=== PATIENT | male | born 1970 | race African-American/Black ===

== ENCOUNTER 2016-09-01 10:28 | Emergency (ER) | payer OTHER ==
[~2016-09-01] VITALS: Ht 172.7 cm; Wt 97.5 kg
[2016-09-01 10:34] VITALS: BP 139/95; PULSE 74; RESP 18; TEMP 97.4; O2SAT 97
--- NOTE | 2016-09-01 10:41 | NUR ---
Patient to ER bed 6 to gown for evaluation. Side rails up. Report given to Michael BA.
--- NOTE | 2016-09-01 10:41 | NUR ---
Pt report received from JESENIA Guerrero. Pt states I think I have "Walking Pneumonia." Pt c/o fever, productive cough with thick, white sputum, and headache x 3 weeks. BBS clear, respirations even and non-labored.
--- NOTE | 2016-09-01 10:50 | NUR ---
Dr. Cuellar at bedside to assess pt.
[2016-09-01 11:50] LABS: BASOPHILS % (AUTO) 0.4 % (0.0-2.0); EOSINOPHILS # (AUTO) 0.2 K/uL (0.0-0.4); EOSINOPHILS % (AUTO) 3.1 % (0.0-4.0); HEMATOCRIT 42.4 % (36-54); HEMOGLOBIN 14.1 g/dL (14.0-18.0); LYMPHOCYTES # (AUTO) 1.8 K/uL (1.0-5.5); LYMPHOCYTES % (AUTO) 27.7 % (20.5-51.5); MEAN CORPUSCULAR HEMOGLOBIN 29 pg (27-31); MEAN CORPUSCULAR HGB CONC 33 % (32-36); MEAN CORPUSCULAR VOLUME 87 fL (79.0-98.0); MONOCYTES # (AUTO) 0.6 K/uL (0.0-1.0); MONOCYTES % (AUTO) 9.7 % (1.7-9.3); NEUTROPHILS % (AUTO) 59.1 % (40.0-70.0); PLATELET COUNT (AUTO) 204 K/uL (130-430); RED CELL DISTRIBUTION WIDTH 12.8 % (9.0-15.0); WHITE BLOOD COUNT (AUTO) 6.6 K/uL (4.8-10.8)
[2016-09-01 12:01] LABS: CALCIUM 8.9 mg/dL (8.4-11.0); CREATININE 1.11 mg/dL (0.55-1.30); POTASSIUM 4.2 mmol/L (3.5-5.1)
[2016-09-01 12:06] LABS: ALBUMIN 4.3 g/dL (3.4-4.8); TOTAL BILIRUBIN 0.4 mg/dL (0.0-1.0); TOTAL PROTEIN, SERUM 8.3 g/dL (6.4-8.3)
[2016-09-01 12:28] VITALS: BP 134/88; PULSE 76; RESP 18; TEMP 98.4; O2SAT 100
--- NOTE | 2016-09-01 12:28 | NUR ---
Patient given written and verbal discharge instructions and verbalizes understanding. ER MD discussed with patient the results and treatment provided. Patient in stable condition. ID arm band removed. Rx of Azithromycin given. Patient educated on pain management and to follow up with PMD. Pain Scale 0/10. Opportunity for questions provided and answered.
== END 2016-09-01 12:28 | disposition home or self-care (01) ==
LOC: SED 10:28
DX: J42 Unspecified chronic bronchitis (principal); Z86.018 Personal history of other benign neoplasm; Z90.49 Acquired absence of other specified parts of digestive tract
CPT/HCPCS: 36415; 71010; 80053; 82550-TC; 85025; 99285